=== PATIENT | female | born 1995 | race Hispanic/Latino ===

== ENCOUNTER 2021-03-19 21:40 | Inpatient (IN) | payer MEDICAID, OTHER, SELFPAY ==
[2021-03-19 22:30] LABS: Fetal Membranes Rupture RUPTURE DETECTED (No Rupture)
[2021-03-19] MEDS ORDERED: Ondansetron PF 4 MG/2 ML Vial IVP PRN (23:25)
[2021-03-19] MEDS ORDERED: Methylergonovine 0.2 MG/ML VIAL IM PRN (23:25)
[2021-03-19] MEDS ORDERED: Ibuprofen 800 MG TAB PO PRN (23:25)
[2021-03-19] MEDS ORDERED: Docusate 100 MG CAP PO PRN (23:25)
[2021-03-19] MEDS ORDERED: Lidocaine 1% (PF) 30 ML VIAL SC PRN (23:25)
[2021-03-19] MEDS ORDERED: Carboprost 250 MCG/ML AMP IM PRN (23:25)
[2021-03-19] MEDS ORDERED: hydrALAZINE 20 MG/ML VIAL SLOW IVP PRN (23:25)
[2021-03-19] MEDS ORDERED: Misoprostol 200 MCG TAB PR PRN (23:25)
[2021-03-19] MEDS ORDERED: Acetaminophen 500 MG TAB PO PRN (23:25)
[2021-03-19] MEDS ORDERED: Promethazine HCl 25 MG/ML VIAL IM PRN (23:25)
[2021-03-19] MEDS ORDERED: Misoprostol 100 MCG TAB VAG SCH (23:30)
[2021-03-19] MEDS ORDERED: NS w/ Oxytocin 30 units 500 ML IV SCH (23:30)
[2021-03-20 02:01] LABS: Hemoglobin 12.1 g/dL (12.0-15.5); Mean Corpuscular HGB CONC 33.1 g/dL (32.0-36.0); Mean Corpuscular Hemoglobin 26.5 pg (27.0-33.0); Mean Corpuscular Volume 80.3 fl (81.6-98.3); Mean Platelet Volume 11.3 fl (7.4-10.4); Platelet Count 249 10x3/uL (150-450); RBC Distribution Width 17.2 % (11.5-14.5); Red Blood Cell (RBC) Count 4.56 10x6/uL (3.90-5.03); White Blood Cell (WBC) Count 12.7 10x3/uL (3.5-10.5)
[2021-03-20 02:12] LABS: Syphilis Antibody Nonreactive (Nonreactive); Syphilis Antibody Index 0.04 S/CO (<1.00 Non-Reactive)
[2021-03-20 02:28] LABS: Hep B Surf Ag Non-Reactive S/CO (NonReactive)
[2021-03-20 02:42] LABS: HBSAg Index 0.16 S/CO (0-0.99)
[2021-03-20 02:48] LABS: SARS-CoV-2 NAA Rapid Test DETECTED (NotDetected)
[2021-03-20] MEDS ORDERED: Misoprostol 100 MCG TAB PO SCH (03:00)
[2021-03-20 03:41] VITALS: BMI 35.9
[2021-03-20] MEDS: Butorphanol Tartrate 1 MG/ML VIAL SLOW IVP PRN ×2 (07:47→09:33)
[2021-03-20] MEDS: Lactated Ringer's 1,000 ML IV SCH (07:51)
[2021-03-20] MEDS: NS w/ Oxytocin 30 units 500 ML IV SCH ×2 (11:02→12:58)
[2021-03-20] MEDS ORDERED: hydrALAZINE 20 MG/ML VIAL SLOW IVP PRN (13:08)
[2021-03-20] MEDS ORDERED: Lanolin Ointment 7 GM TUBE TOP PRN (13:08)
[2021-03-20] MEDS ORDERED: diphenhydrAMINE 25 MG CAP PO PRN (13:08)
[2021-03-20] MEDS ORDERED: Bisacodyl 10 MG SUPP PR PRN (13:08)
[2021-03-20] MEDS ORDERED: Milk Of Magnesia 30 ML UDCUP PO PRN (13:08)
[2021-03-20] MEDS ORDERED: Ondansetron PF 4 MG/2 ML Vial IVP PRN (13:08)
[2021-03-20] MEDS ORDERED: HYDROcodone/Acetaminophen 5/325 mg Tablet PO PRN ×2 (13:08)
[2021-03-20] MEDS ORDERED: Benzocaine-Menthol 82.5 ML CAN TOP PRN (13:08)
[2021-03-20] MEDS ORDERED: Boostrix 0.5 ML (Tdap) VIAL IM ONE (13:08)
[2021-03-20] MEDS ORDERED: Preparation H Ointment 28 GM TUBE PR PRN (13:08)
[2021-03-20] MEDS: Ibuprofen 800 MG TAB PO SCH ×2 (14:28→21:35)
[2021-03-20] MEDS: Ferrous Sulfate 325 MG TAB PO SCH (18:36)
[2021-03-20] MEDS: Docusate 100 MG CAP PO SCH (21:36)
[2021-03-21] MEDS: Ibuprofen 800 MG TAB PO SCH ×2 (05:04→13:32)
[2021-03-21] MEDS: Lactated Ringer's 1,000 ML IV SCH (06:45)
[2021-03-21] MEDS: Docusate 100 MG CAP PO SCH (08:53)
[2021-03-21] MEDS: Ferrous Sulfate 325 MG TAB PO SCH ×2 (08:53→17:56)
[2021-03-21] MEDS ORDERED: Prenatal Vitamin 1 TAB PO SCH (09:00)
[2021-03-21 13:02] VITALS: BP 112/70; TEMP 98
== END 2021-03-21 17:50 | disposition home or self-care (01) | DRG 805 ==
LOC: CSHLD/OP 21:40 → CSHLD 23:34 → CSHPP 03-20 13:56
PROVIDERS: ADMIT Obstetrics & Gynecology; ATTEND Obstetrics & Gynecology
PROC: 10E0XZZ Delivery of Products of Conception, External Approach (ICD-10-PCS; principal; 2021-03-20)
PROC: 3E0P7VZ Introduction of Hormone into Female Reproductive, Via Natural or Artificial Opening (ICD-10-PCS; 2021-03-20)
PROC: 3E033VJ Introduction of Other Hormone into Peripheral Vein, Percutaneous Approach (ICD-10-PCS; 2021-03-20)
PROC: 0HQ9XZZ Repair Perineum Skin, External Approach (ICD-10-PCS; 2021-03-20)
DX: O69.81X0 Labor and delivery complicated by cord around neck, without compression, not applicable or unspecified (principal); U07.1 COVID-19; O98.53 Other viral diseases complicating the puerperium; O70.0 First degree perineal laceration during delivery; Z37.0 Single live birth; Z3A.38 38 weeks gestation of pregnancy
CPT/HCPCS: 36415; 84112; 85027; 86780; 86850; 86900; 86901; 87340; 99285; J0595; J2590; J7120; U0002

== ENCOUNTER 2022-02-04 12:23 | Inpatient (IN) | payer MEDICAID, OTHER, SELFPAY ==
[2022-02-04 12:48] VITALS: BMI 37.3
[2022-02-04 13:11] LABS: Fetal Membranes Rupture RUPTURE DETECTED (No Rupture)
[2022-02-04] MEDS: Lactated Ringer's 1,000 ML IV SCH (14:30)
[2022-02-04] MEDS ORDERED: NS w/ Oxytocin 30 units 500 ML ONE (15:19)
[2022-02-04] MEDS ORDERED: Butorphanol Tartrate 1 MG/ML VIAL ONE (15:20)
[2022-02-04] MEDS ORDERED: Promethazine HCl 25 MG/ML VIAL IM PRN (15:29)
[2022-02-04] MEDS ORDERED: hydrALAZINE 20 MG/ML VIAL SLOW IVP PRN (15:29)
[2022-02-04] MEDS ORDERED: Methylergonovine 0.2 MG/ML VIAL IM PRN (15:29)
[2022-02-04] MEDS ORDERED: Misoprostol 200 MCG TAB PR PRN (15:29)
[2022-02-04] MEDS ORDERED: Lidocaine 1% (PF) 30 ML VIAL SC PRN (15:29)
[2022-02-04] MEDS ORDERED: Carboprost 250 MCG/ML AMP IM PRN (15:29)
[2022-02-04] MEDS ORDERED: Diphenoxylate HCl/Atropine Tablet PO PRN (15:29)
[2022-02-04] MEDS ORDERED: Ondansetron PF 4 MG/2 ML Vial IVP PRN (15:29)
[2022-02-04] MEDS ORDERED: NS w/ Oxytocin 30 units 500 ML IV SCH ×2 (15:30)
[2022-02-04] MEDS: Butorphanol Tartrate 1 MG/ML VIAL SLOW IVP PRN ×4 (15:35→20:38)
[2022-02-04 15:47] LABS: Hemoglobin 13.1 g/dL (12.0-15.5); Mean Corpuscular HGB CONC 34.5 g/dL (32.0-36.0); Mean Corpuscular Hemoglobin 28.4 pg (27.0-33.0); Mean Corpuscular Volume 82.4 fl (81.6-98.3); Mean Platelet Volume 11.1 fl (7.4-10.4); Platelet Count 229 10x3/uL (150-450); RBC Distribution Width 15.1 % (11.5-14.5); Red Blood Cell (RBC) Count 4.61 10x6/uL (3.90-5.03); White Blood Cell (WBC) Count 8.4 10x3/uL (3.5-10.5)
[2022-02-04 16:14] LABS: HBSAg Index 0.15 S/CO (0-0.99); Hep B Surf Ag Non-Reactive S/CO (NonReactive); Syphilis Antibody Nonreactive (Nonreactive); Syphilis Antibody Index 0.03 S/CO (<1.00 Non-Reactive)
[2022-02-04 16:48] LABS: SARS-CoV-2 NAA Rapid Test Not Detected (NotDetected)
[2022-02-04] MEDS ORDERED: Acetaminophen 500 MG TAB PO PRN (23:41)
[2022-02-05] MEDS ORDERED: Fentanyl 2 mcg/Bup 0.1% Cadd 100 ML ONE (02:22)
[2022-02-05] MEDS ORDERED: Lidocaine 1% (PF) 30 ML VIAL ONE (02:50)
[2022-02-05] MEDS ORDERED: Misoprostol 200 MCG TAB ONE (03:00)
[2022-02-05] MEDS ORDERED: Methylergonovine 0.2 MG/ML VIAL ONE (03:00)
[2022-02-05] MEDS ORDERED: Carboprost 250 MCG/ML AMP ONE (03:03)
[2022-02-05] MEDS ORDERED: Boostrix 0.5 ML (Tdap) VIAL (>/=7 yrs of age) IM ONE (03:40)
[2022-02-05] MEDS ORDERED: hydrALAZINE 20 MG/ML VIAL SLOW IVP PRN (03:40)
[2022-02-05] MEDS ORDERED: Bisacodyl 10 MG SUPP PR PRN (03:40)
[2022-02-05] MEDS ORDERED: Milk Of Magnesia 30 ML UDCUP PO PRN (03:40)
[2022-02-05] MEDS: Ibuprofen 800 MG TAB PO SCH ×3 (04:41→21:24)
[2022-02-05] MEDS: Lactated Ringer's 1,000 ML IV SCH (07:09)
[2022-02-05] MEDS: Ferrous Sulfate 325 MG TAB PO SCH ×2 (08:16→21:19)
[2022-02-05] MEDS: Docusate 100 MG CAP PO SCH ×2 (08:19→21:24)
[2022-02-05] MEDS: Prenatal Vitamin 1 TAB PO SCH (08:19)
[2022-02-06 01:19] VITALS: TEMP 97.8
[2022-02-06 04:48] LABS: #Eosinphils 0.3 10x3/uL (0.0-0.5); #Monocytes 0.7 10x3/uL (0.0-1.1); #Neutrophils 7.3 10x3/uL (1.5-8.4); %Basophils 0.4 % (0.0-2.0); %Eosinophils 2.2 % (0.0-6.0); %Lymphocytes 25.2 % (18.0-47.0); %Monocytes 6.1 % (0.0-10.0); %Neutrophils 64.9 % (40.0-75.0); Hemoglobin 11.3 g/dL (12.0-15.5); Mean Corpuscular HGB CONC 33.8 g/dL (32.0-36.0); Mean Corpuscular Hemoglobin 28.4 pg (27.0-33.0); Mean Corpuscular Volume 83.9 fl (81.6-98.3); Mean Platelet Volume 10.6 fl (7.4-10.4); Platelet Count 220 10x3/uL (150-450); RBC Distribution Width 15.2 % (11.5-14.5); Red Blood Cell (RBC) Count 3.98 10x6/uL (3.90-5.03); White Blood Cell (WBC) Count 11.3 10x3/uL (3.5-10.5)
[2022-02-06] MEDS: Ibuprofen 800 MG TAB PO SCH ×2 (05:54→13:31)
[2022-02-06 07:41] VITALS: BP 90/55
[2022-02-06] MEDS: Docusate 100 MG CAP PO SCH (08:17)
[2022-02-06] MEDS: Ferrous Sulfate 325 MG TAB PO SCH (08:17)
[2022-02-06] MEDS: Prenatal Vitamin 1 TAB PO SCH (08:17)
== END 2022-02-06 16:15 | disposition home or self-care (01) | DRG 806 ==
LOC: CSHLD/OP 12:23 → CSHLD 14:04 → CSHPP 02-05 05:50
PROVIDERS: ADMIT Obstetrics & Gynecology; ATTEND Obstetrics & Gynecology
PROC: 0U7C7ZZ Dilation of Cervix, Via Natural or Artificial Opening (ICD-10-PCS; 2022-02-04)
PROC: 0UQGXZZ Repair Vagina, External Approach (ICD-10-PCS; principal; 2022-02-05)
PROC: 10E0XZZ Delivery of Products of Conception, External Approach (ICD-10-PCS; 2022-02-05)
DX: O42.02 Full-term premature rupture of membranes, onset of labor within 24 hours of rupture (principal); O71.4 Obstetric high vaginal laceration alone; Z37.0 Single live birth; O32.6XX0 Maternal care for compound presentation, not applicable or unspecified; Z83.3 Family history of diabetes mellitus; Z3A.39 39 weeks gestation of pregnancy; Z20.822 Contact with and (suspected) exposure to COVID-19
CPT/HCPCS: 36415; 84112; 85025; 85027; 86780; 86850; 86900; 86901; 87340; 99285; J0595; J2590; J7120; U0002